=== PATIENT | male | born 1955 | race Two or more races ===

== ENCOUNTER 2022-08-10 10:09 | Outpatient (CLI) | payer OTHER | END 2022-08-10 10:14 | disposition home or self-care (01) | LOC: NUCLEAR 10:09 | PROVIDERS: ATTEND Internal Medicine Cardiovascular Disease | DX: I10 Essential (primary) hypertension (principal); E11.9 Type 2 diabetes mellitus without complications ==

== ENCOUNTER → 2023-04-15 | Outpatient (CLI) | payer OTHER | END | disposition home or self-care (01) | LOC: MRI 11:46 | PROVIDERS: ATTEND Psychiatry & Neurology Neurology | DX: R41.3 Other amnesia (principal); I67.9 Cerebrovascular disease, unspecified | CPT/HCPCS: 70551 ==

== ENCOUNTER 2024-02-11 11:22 | Outpatient (CLI) | payer OTHER | END 2024-02-11 11:33 | disposition home or self-care (01) | LOC: MRI 11:22 | PROVIDERS: ATTEND Orthopaedic Surgery Sports Medicine | DX: M75.122 Complete rotator cuff tear or rupture of left shoulder, not specified as traumatic (principal) | CPT/HCPCS: 73218 ==

== ENCOUNTER 2024-08-11 11:46 | Outpatient (CLI) | payer OTHER | END 2024-08-11 11:48 | disposition home or self-care (01) | LOC: RAD 11:46 | PROVIDERS: ATTEND Orthopaedic Surgery Adult Reconstructive Orthopaedic Surgery | DX: M54.2 Cervicalgia (principal) ==